=== PATIENT | female | born 1995 | race Caucasian/White ===

== ENCOUNTER 2019-02-21 20:18 | Emergency (ER) | payer OTHER ==
[~2019-02-21] VITALS: Ht 175.3 cm; Wt 118.2 kg
[2019-02-21] MEDS ORDERED: AMOXIL500 M1 PO (21:15)
[2019-02-21 22:07] VITALS: BP 132/90
== END 2019-02-21 21:20 | disposition home or self-care (01) ==
LOC: ED 20:18
DX: J03.00 Acute streptococcal tonsillitis, unspecified (principal)
CPT/HCPCS: J1100

== ENCOUNTER → 2022-08-17 | Outpatient (CLI) | payer MEDICAID ==
[~2022-08-17] MED LIST: AMOXIL500 M1 PO
== END ==
LOC: RAD 11:29
DX: M25.532 Pain in left wrist (principal)